=== PATIENT | female | born 1955 | race Caucasian/White ===

== ENCOUNTER → 2018-01-21 | Outpatient (CLI) | payer OTHER, MEDICARE ==
[~2018-01-21] MED LIST: CALC-864 PO; CEPH-13 PO; CEPH500T7 PO; CHOL10005 PO; ESOM40CA42 PO; LEVO50 PO; LEVO50TA86 PO; MULT-865 PO; NAS20R NS; VIT-7 PO
--- NOTE | 2018-01-22 11:27 | RADIOLOGY IMAGING REPORT ---
FACILITY: [facility] - [place] PATIENT NAME: KAELA CHRISTOPHER : [id number] MR: [id number] V: [id number] EXAM DATE: ORDERING PHYSICIAN: CODI RINCON TECHNOLOGIST: Jocelyn De Souza PROCEDURE:BILATERAL DIGITAL SCREENING MAMMOGRAM WITH CAD ASSISTED INTERPRETATION & 3D TOMOSYNTHESIS COMPARISON:Prior mammograms 12/11/16, 09/14/15, , 04/08/11. INDICATIONS:screening FINDINGS: A small amount of fibroglandular tissue is seen throughout the breasts. The parenchymal pattern has remained stable allowing for difference in mammographic technique & patient positioning. There is no evidence of malignant appearing mass, malignant appearing calcifications or other secondary sign of malignancy in either breast. DIAGNOSTIC CATEGORY 1--NEGATIVE. RECOMMENDATIONS: ROUTINE MAMMOGRAM AND CLINICAL EVALUATION. IMPRESSION: BIRADS 1: Negative. No significant abnormality is seen. Dictated by: Suzanne Lawson M.D. on 01/21/2018 at 16:10 Transcribed by: NIKITA on 01/22/2018 at 7:50 Approved by: Suzanne Lawson M.D. on 01/22/2018 at 11:26 [facility]
== END ==
LOC: MAMO 00:30
PROVIDERS: ATTEND Emergency Medicine
DX: Z12.31 Encounter for screening mammogram for malignant neoplasm of breast (principal)
CPT/HCPCS: 77063; 77067

== ENCOUNTER → 2018-02-22 | Outpatient (CLI) | payer OTHER, MEDICARE | LOC: LAB 08:01 | PROVIDERS: ATTEND Emergency Medicine | DX: Z12.11 Encounter for screening for malignant neoplasm of colon (principal) | CPT/HCPCS: 82274 ==

== ENCOUNTER → 2018-02-24 | Outpatient (CLI) | payer OTHER, MEDICARE ==
--- NOTE | 2018-02-24 14:32 | RADIOLOGY IMAGING REPORT ---
FACILITY: [facility] PATIENT NAME: Leanne Bowling : 1955 MR: [id number] V: [id number] EXAM DATE: ORDERING PHYSICIAN: CODI RINCON TECHNOLOGIST: Location: [facility] Patient: Leanne Bowling : 1955 Visit/Account:[id number] Date of Sevice: 02/24/2018 DEXA Scan 02/24/2018 11:25 AM HISTORY: Osteopenia. Asymptomatic postmenopausal estrogen deficiency. Comparison: DEXA scan from 09/11/2014. LUMBAR SPINE: The bone mineral density (BMD) measured from L1-L4 correlates with a Z-score of -0.7 and a T-score of -1.5 which is moderately osteopenic as defined by the World Health Organization. The corresponding risk of fracture in the lumbar spine is increased 3 times compared with a young adult reference popul ation. This value has decreased by 0.9 % since the prior study. More than 5% change is considered s ignificant. HIP: Bone mineral density (BMD) measured in the Left total hip region correlates with a Z-score -0.6 and a T-score of -1.2 which is mildly osteopenic as defined by the World Health Organization. The corresp onding risk of fracture in the hip is increased 2-3 times compared with a young adult reference popul ation. This value has decreased by 1.0 % since the prior study. More than 5% change is considered si gnificant. Bone mineral density (BMD) measured in the Femoral Neck region measures 0.799 g/cm2. T-score is -1. 7. IMPRESSION: 1. Lumbar spine: Moderate osteopenia. There has been No significant change in the bone mineral dens ity since the previous exam. 2. Left Total Hip: Mild osteopenia. There has been No significant change in the bone mineral densit y since the previous exam. 3. Femoral Neck: Bone Mineral Density is 0.799 g/cm2. Moderate osteopenia. The next DEXA scan of this patient should include the following sites: L1-L4 and the left hip. FRAX? WHO Fracture Risk Assessment Tool link: <http://www.shef.ac.uk/FRAX/tool.jsp?locationValue=9> PLEASE NOTE: 1) The World Health Organization defines low BMD as follows: T-score Normal > -1 Osteopenia < -1 and > -2.5 Osteoporosis < -2.5 without fractures Established osteoporosis < -2.5 with fractures 2) In general, you may wish to consider: Diagnosis Treatment Follow-up DEXA Normal BMD Prevention 2-3 years Osteopenia Prevention/therapy 1-2 years Osteoporosis Therapy Yearly 3) Fracture risk estimated from the T-score is more accurate for vertebral fractures (often spontane ous) than for hip fractures. Report Dictated By: Fabio Narayan MD at 02/24/2018 2:25 PM Report E-Signed By: Fabio Narayan MD at 02/24/2018 2:27 PM WSN:[id number]
== END ==
LOC: RAD 02:42
PROVIDERS: ATTEND Emergency Medicine
DX: M85.89 Other specified disorders of bone density and structure, multiple sites (principal); Z78.0 Asymptomatic menopausal state
CPT/HCPCS: 77080

== ENCOUNTER 2018-05-10 04:26 | Emergency (ER) | payer OTHER, MEDICARE ==
--- NOTE | 2018-05-10 04:34 | ER Report ---
History and Physical Time Seen By MD: 04:29 HPI/ROS CHIEF COMPLAINT: low back pain with radiation to left groin HISTORY OF PRESENT ILLNESS: Pt state that for last few days she has had left sided low back pain that she discribes as "constant ache". Pt has tried hot and cold. Pt has tired biofreeze and alieve. Pt still with pain. pain is not as bad if she is standing but is worse with leg raise or sitting. Pt points to left buttocks area and states it wraps around to her front thigh. Pt drove here. Pt is very anxious "how long is this going to take.. i want to be home by the time my mom with dementia wakes up". pt found to have elevated blood pressure on arrival but she feels that is white coat syndrome. no dysuria. no change in bm, but pt does have pain with bowelmovements at times. no hx of kidney stone. no hx of sciatica no fevers. PT needing to stand due to pain with sitting. REVIEW OF SYSTEMS: Constitutional: No fever, no chills. Eyes: No discharge. ENT: No sore throat. Cardiovascular: No chest pain, no palpitations. Respiratory: No cough, no shortness of breath. Gastrointestinal: No abdominal pain, no vomiting. Genitourinary: No hematuria. Musculoskeletal: + back pain. Skin: No rashes. Neurological: No headache. Allergies: Coded Allergies: Sulfa (Sulfonamide Antibiotics) (Verified Allergy, Intermediate, RED, RASH, HEAT, DISCOMFORT, 05/10/18) meperidine (Verified Allergy, Intermediate, ANXIOUS, HYPER, 05/10/18) levofloxacin (Verified Allergy, Mild, MADE ME SICK A DOG, 05/10/18) Home Meds Active Scripts Ondansetron (ZOFRAN ODT) 4 Mg Tab.rapdis, 4 MG PO Q6H PRN for NAUSEA/VOMITING, #15 TAB.AMY Prov:SOPHIA RAMOS V DO 05/10/18 Methocarbamol (ROBAXIN-750) 750 Mg Tablet, 750 MG PO Q4H PRN for MUSCLE SPASMS, #21 TAB Prov:SOPHIA RAMOS V DO 05/10/18 Hydrocodone Bit/Acetaminophen (HYDROCODON-ACETAMINOPHEN 5-325) 1 Each Tablet, 1 EACH PO Q6H PRN for PAIN, #21 TAB Prov:SOPHIA RAMOS V DO 05/10/18 Amoxicillin/Pot Clav 875-125 Mg Tab (AUGMENTIN 875-125 TABLET) 1 Each Tablet, 1 TAB PO Q12H, #20 TAB Prov:SOPHIA RAMOS V DO 05/10/18 Levothyroxine Sodium (LEVOTHYROXINE SODIUM) 50 Mcg Tablet, 1 TAB PO QDAY, #90 TAB 3 Refills Prov:CODI RINCON MD 01/28/18 Reported Medications Calcium Carb & Cit/Vitamin D3 (CITRACAL + D ER TABLET) 1 Each Tablet.er, 1 EACH PO DAILY 12/30/16 Past Medical/Surgical History pmhx: gerd, hiatal hernia, hypothyroid Pshx: appy, marielos, oopheretomy Reviewed Nurses Notes: Yes Old Medical Records Reviewed: Yes Hx Smoking: No Smoking Status: Never Smoker Constitutional Vital Sign - Last 24 Hours 05/10/18 05/10/18 05/10/18 04:32 04:55 05:50 Temp 98.2 Pulse 83 Resp 20 B/P (MAP) 202/117 162/103 (122) 166/92 (116) Pulse Ox 94 O2 Delivery Room Air Physical Exam General Appearance: The patient is alert, has no immediate need for airway protection and no signs of toxicity. Eyes: Pupils equal and round no pallor or injection, EOMI ENT: no pharyngeal erythema or exudates, Mucous membranes are moist Respiratory: There are no retractions, lungs are clear to auscultation. Cardiovascular: Regular rate and rhythm. pulses are equal and symmetrical Gastrointestinal: Abdomen is soft and non tender, no masses, bowel sounds normal, no guarding, no rigidity or rebound Neurological: Cranial nerves II-XII grossly intact, no sensory or motor loss Skin: Warm and dry, no rashes. Musculoskeletal: Neck is supple non tender, no vertebral tenderness, + point tenderness over left buttocks lateral to the S/I joint; + increased pain with left leg raise Extremities are nontender, non swollen and have full range of motion. DIFFERENTIAL DIAGNOSIS: After history and physical exam differential diagnosis was considered for sciatica, kidney stone, htn essential vs anxiety/pain Medical Decision Making Data Points Result Diagram: 05/10/1851205/10/18512 Laboratory Hematology Test 05/10/18 04:36 05/10/18 05:13 Urine Color Straw Urine Clarity Clear Urine pH 5.0 pH (4.8-9.5) Urine Specific [place] 1.011 Urine Protein Negative mg/dL (NEGATIVE) Urine Glucose (UA) Negative mg/dL (NEGATIVE) Urine Ketones Negative mg/dL (NEGATIVE) Urine Blood Small (NEGATIVE) Urine Nitrite Negative (NEGATIVE) Urine Bilirubin Negative (NEGATIVE) Urine Urobilinogen Negative mg/dL (0.2-1.9) Urine Leukocyte Esterase Negative (NEGATIVE) Urine RBC 3 /HPF (0-2/HPF) Urine WBC 2 /HPF (0-5/HPF) Urine Squamous Epithelial Cells Many /LPF (</=FEW) Urine Transitional Epithelial Cells Few /LPF (NONE-FEW) Urine Bacteria Negative /HPF (NONE-FEW) Urine Mucus None /HPF (NONE-FEW) Red Blood Count 5.40 M/uL (4.17-5.56) Mean Corpuscular Volume 84.3 fL (80.0-96.0) Mean Corpuscular Hemoglobin 28.5 pg (26.0-33.0) Mean Corpuscular Hemoglobin Concent 33.8 g/dL (32.0-36.0) Red Cell Distribution Width 13.6 % (11.5-14.5) Mean Platelet Volume 7.1 fL (7.2-11.1) Neutrophils (%) (Auto) 71.3 % (39.4-72.5) Lymphocytes (%) (Auto) 19.8 % (17.6-49.6) Monocytes (%) (Auto) 6.0 % (4.1-12.4) Eosinophils (%) (Auto) 2.0 % (0.4-6.7) Basophils (%) (Auto) 0.9 % (0.3-1.4) Nucleated RBC Relative Count (auto) 0.0 /100WBC Neutrophils # (Auto) 6.1 K/uL (2.0-7.4) Lymphocytes # (Auto) 1.7 K/uL (1.3-3.6) Monocytes # (Auto) 0.5 K/uL (0.3-1.0) Eosinophils # (Auto) 0.2 K/uL (0.0-0.5) Basophils # (Auto) 0.1 K/uL (0.0-0.1) Nucleated RBC Absolute Count (auto) 0.00 K/uL Sodium Level 138 mmol/L (137-145) Potassium Level 4.1 mmol/L (3.5-5.0) Chloride Level 105 mmol/L (98-107) Carbon Dioxide Level 21 mmol/L (22-31) Blood Urea Nitrogen 13 mg/dl (7-18) Creatinine 0.60 mg/dl (0.52-1.04) Glomerular Filtration Rate Calc > 60.0 Random Glucose 121 mg/dl (75-110) Calcium Level 9.3 mg/dl (8.4-10.2) Total Bilirubin 0.4 mg/dl (0.2-1.3) Aspartate Amino Transf (AST/SGOT) 25 U/L (0-35) Alanine Aminotransferase (ALT/SGPT) 25 U/L (0-56) Alkaline Phosphatase 96 U/L (0-126) Total Protein 8.4 g/dl (6.3-8.2) Albumin 4.5 g/dl (3.5-5.0) Chemistry Test 05/10/18 04:36 05/10/18 05:13 Urine Color Straw Urine Clarity Clear Urine pH 5.0 pH (4.8-9.5) Urine Specific [place] 1.011 Urine Protein Negative mg/dL (NEGATIVE) Urine Glucose (UA) Negative mg/dL (NEGATIVE) Urine Ketones Negative mg/dL (NEGATIVE) Urine Blood Small (NEGATIVE) Urine Nitrite Negative (NEGATIVE) Urine Bilirubin Negative (NEGATIVE) Urine Urobilinogen Negative mg/dL (0.2-1.9) Urine Leukocyte Esterase Negative (NEGATIVE) Urine RBC 3 /HPF (0-2/HPF) Urine WBC 2 /HPF (0-5/HPF) Urine Squamous Epithelial Cells Many /LPF (</=FEW) Urine Transitional Epithelial Cells Few /LPF (NONE-FEW) Urine Bacteria Negative /HPF (NONE-FEW) Urine Mucus None /HPF (NONE-FEW) White Blood Count 8.5 k/uL (4.5-11.0) Red Blood Count 5.40 M/uL (4.17-5.56) Hemoglobin 15.4 g/dL (12.0-16.0) Hematocrit 45.5 % (34.0-47.0) Mean Corpuscular Volume 84.3 fL (80.0-96.0) Mean Corpuscular Hemoglobin 28.5 pg (26.0-33.0) Mean Corpuscular Hemoglobin Concent 33.8 g/dL (32.0-36.0) Red Cell Distribution Width 13.6 % (11.5-14.5) Platelet Count 334 K/uL (150-450) Mean Platelet Volume 7.1 fL (7.2-11.1) Neutrophils (%) (Auto) 71.3 % (39.4-72.5) Lymphocytes (%) (Auto) 19.8 % (17.6-49.6) Monocytes (%) (Auto) 6.0 % (4.1-12.4) Eosinophils (%) (Auto) 2.0 % (0.4-6.7) Basophils (%) (Auto) 0.9 % (0.3-1.4) Nucleated RBC Relative Count (auto) 0.0 /100WBC Neutrophils # (Auto) 6.1 K/uL (2.0-7.4) Lymphocytes # (Auto) 1.7 K/uL (1.3-3.6) Monocytes # (Auto) 0.5 K/uL (0.3-1.0) Eosinophils # (Auto) 0.2 K/uL (0.0-0.5) Basophils # (Auto) 0.1 K/uL (0.0-0.1) Nucleated RBC Absolute Count (auto) 0.00 K/uL Glomerular Filtration Rate Calc > 60.0 Calcium Level 9.3 mg/dl (8.4-10.2) Total Bilirubin 0.4 mg/dl (0.2-1.3) Aspartate Amino Transf (AST/SGOT) 25 U/L (0-35) Alanine Aminotransferase (ALT/SGPT) 25 U/L (0-56) Alkaline Phosphatase 96 U/L (0-126) Total Protein 8.4 g/dl (6.3-8.2) Albumin 4.5 g/dl (3.5-5.0) Urinalysis Test 05/10/18 04:36 Urine Color Straw Urine Clarity Clear Urine pH 5.0 pH (4.8-9.5) Urine Specific [place] 1.011 Urine Protein Negative mg/dL (NEGATIVE) Urine Glucose (UA) Negative mg/dL (NEGATIVE) Urine Ketones Negative mg/dL (NEGATIVE) Urine Blood Small (NEGATIVE) Urine Nitrite Negative (NEGATIVE) Urine Bilirubin Negative (NEGATIVE) Urine Urobilinogen Negative mg/dL (0.2-1.9) Urine Leukocyte Esterase Negative (NEGATIVE) Urine RBC 3 /HPF (0-2/HPF) Urine WBC 2 /HPF (0-5/HPF) Urine Squamous Epithelial Cells Many /LPF (</=FEW) Urine Transitional Epithelial Cells Few /LPF (NONE-FEW) Urine Bacteria Negative /HPF (NONE-FEW) Urine Mucus None /HPF (NONE-FEW) EKG/Imaging Imaging lumbar xrays:Dextroscoliosis of the lumbar spine with asymmetric spondylosis that likely results in at least moderate narrowing of the L3-4 neural foramina on the left. ED Course/Re-evaluation ED Course check urine and xray. Will recheck blood pressure. PTs office visit in past had bp of 155/95 so pt does have htn by hx however today is elevated. 05/10/2018 5:05:00 am Pts blood pressure is not improved. Pt is now pacing the room. Pt refusing any narcotics due to need to taking care of her mom. Will obtain CT to rule out stone and any dilitation of her aorta. PT does have blood in urine 05/10/2018 5:41:28 am Pt on xray has Dextroscoliosis of the lumbar spine with asymmetric spondylosis that likely results in at least moderate narrowing of the L3-4 neural foramina on the left, this could be causing neuropathy pain. Still awaiting CT to rule out aortic or kidney issue. 05/10/2018 6:18:[address] shows some inflammation of the sigmoid with diverticula that could represent diverticulitis. Pt has not had diarrhea but is c/o of pain in groin and LLQ. Pt however continues to have an ache in left buttocks and with the narrowing of L3-l4 foramina I suspect pt has sciatica. Pt is unable to stay for MRI due to awaiting her mothers and pt states "i just want something for the back pain so I can sleep". Pt drove so I have been unable to give her any opoid relief. Pt will need to follow up with Dr. Sierra to schedule outpt MRI of lumbar area and possible follow up with Dr. Dickinson and also an out pt colonoscopy with Dr. Elana. PT was due for colonoscopy last year but was unable to schedule to due she had no one to take her. Pt allergic to levaquin so will give augmentin. pt not sure if she had any narcotic pain meds before. Will send home with lortab for pain, robaxin for spasms, zofran if nauseated and augmentin for inflammation of sigmoid. Pt appears uncomfortable so will give her a lortab to take once she gets home. Decision to Disposition Date: May 10, 2018 Decision to Disposition Time: 06:23 Depart Departure Latest Vital Signs Vital Signs Date Time Temp Pulse Resp B/P (MAP) Pulse Ox O2 Delivery O2 Flow Rate FiO2 05/10/18 05:50 166/92 (116) 05/10/18 04:32 98.2 83 20 94 Room Air Impression: Primary Impression: Diverticulitis of sigmoid colon Additional Impressions: Lumbar radiculopathy, acute Hypertension Condition: Condition Unchanged Disposition: HOME OR SELF-CARE Referrals: CODI RINCON MD (PCP) 5 Days MERLENE NEW MD call to schedule an appointment for colonscopy New Scripts Ondansetron (ZOFRAN ODT) 4 Mg Tab.rapdis 4 MG PO Q6H PRN for NAUSEA/VOMITING, #15 TAB.AMY Prov: LAURORA,SOPHIA V DO 05/10/18 Methocarbamol (ROBAXIN-750) 750 Mg Tablet 750 MG PO Q4H PRN for MUSCLE SPASMS, #21 TAB Prov: LAURORA,SOPHIA V DO 05/10/18 Hydrocodone Bit/Acetaminophen (HYDROCODON-ACETAMINOPHEN 5-325) 1 Each Tablet 1 EACH PO Q6H PRN for PAIN, #21 TAB Prov: LAURORA,SOPHIA V DO 05/10/18 Amoxicillin/Pot Clav 875-125 Mg Tab (AUGMENTIN 875-125 TABLET) 1 Each Tablet 1 TAB PO Q12H, #20 TAB Prov: LAURORA,SOPHIA V DO 05/10/18 Patient Instructions: Diverticulitis (ED), Lumbar Radiculopathy (ED) Additional Instructions: Follow up with your family doctor this week to schedule an MRI of your lumbar spine to further evaluate your pain. Your cat scan did show significant degenerative changes within that area. Your blood pressure was also elevated in the emergency room. When you see your family doctor you need to have it checked . If it continues to be elevated you may require medication. Your cat scan today also saw some inflammation of your colon in the left side of your abdomen. We are starting you on antibiotics. I recommend you follow up with Dr. New to schedule a colonoscopy when able. lortab one every 6 hours as needed for severe pain. Robaxin one every 4 hours as needed for muscle spasm zofran one every 6 hours as need for nausea Tylenol 650mg every 4 hours as needed for pain. You may continue to use alieve, heating pad to area. Problem Qualifiers Additional Impressions: Hypertension Hypertension type: unspecified Qualified Codes: I10 - Essential (primary) hypertension SOPHIA RAMOS DO May 10, 2018 04:34
[2018-05-10] MEDS ORDERED: IBUPROFEN 600 MG TAB PO ONE (04:35)
[2018-05-10] MEDS ORDERED: ORPHENADRINE 60MG/2ML INJ IVP ONE (05:00)
--- NOTE | 2018-05-10 05:16 | RADIOLOGY IMAGING REPORT ---
FACILITY: [facility] PATIENT NAME: Leanne Bowling : 1955 MR: [id number] V: [id number] EXAM DATE: [id number] ORDERING PHYSICIAN: SOPHIA RAMOS TECHNOLOGIST: Location: [facility] [place] Patient: Leanne Bowling : 1955 Visit/Account:[id number] Date of Sevice: 05/10/2018 INDICATION: Low back ache with radiation to left groin. EXAM DATE: 05/10/2018 4:34 AM COMPARISON: None. FINDINGS: 4 images lumbar spine. No acute alignment abnormality or fracture. Mild to moderate rightward curva ture of the lumbar spine. Asymmetric left-sided spondylosis greatest at the L3-4 level with associat ed osteophyte off the inferior endplate of L3 that likely results in at least moderate neural foramin al narrowing. Cholecystectomy clips. IMPRESSION: 1. No acute osseous abnormality of the lumbar spine. 3. Dextroscoliosis of the lumbar spine with asymmetric spondylosis that likely results in at least m oderate narrowing of the L3-4 neural foramina on the left. Report Dictated By: Marlo Dolan MD at 05/10/2018 5:10 AM Report E-Signed By: Marlo Dolan MD at 05/10/2018 5:13 AM WSN:[id number]
[2018-05-10 05:22] LABS: PLATELET COUNT, AUTOMATED 334 K/uL (150-450)
[2018-05-10 05:50] VITALS: BP 166/92
--- NOTE | 2018-05-10 06:01 | RADIOLOGY IMAGING REPORT ---
[place] [facility] [place] Leanne Bowlnig : 1955 MR: [id number] V: [id number] EXAM DATE: ORDERING PHYSICIAN: SOPHIA RAMOS TECHNOLOGIST: Location: [facility] Patient: Leanne Bowling : 1955 Visit/Account:[id number] Date of Sevice: 05/10/2018 CT of the abdomen and pelvis without contrast: Indication: Left flank pain radiating to the left groin. Technique: Helical CT was performed through the abdomen and pelvis without contrast. Multiplanar rec onstructions are reviewed. One of the following dose optimization techniques was utilized in the performance of this exam: Autom ated exposure control; adjustment of the mA and/or kV according to the patient's size; or use of an i terative reconstruction technique. Specific details can be referenced in the facility's radiology CT exam operational policy. Comparison: None. Lower lung quintana: No parenchymal or pleural abnormality is identified. There is a moderate/large hia fang hernia. Liver: Enlarged. The right lobe measures 21.0 cm. The parenchyma appears homogeneous. No focal liver lesions are identified. Gallbladder/biliary tree: There are surgical clips related to prior cholecystectomy. The bile ducts a re not dilated. Pancreas: Normal in size, shape, and density. Spleen: Normal in size, shape, and density. Adrenal glands: Within normal limits. Kidneys/urinary bladder: There is a 2.7 x 1.3 cm fat density lesion at the superior pole of the left kidney, compatible with angiomyolipoma. The left kidney is otherwise unremarkable. The right kidney appears unremarkable. There are no signs of urinary tract calculus or obstruction on either side. There are no signs of perinephric hemorrhage or fluid. The urinary bladder is unremarkable, as visualized. Intestinal structures: There are scattered diverticula throughout the colon, most pronounced in the s igmoid colon. There is thickening of the wall of the sigmoid colon, which may be a sign of acute dive rticulitis. There are no signs of fluid collection, free fluid, or free air around the sigmoid colon. There are no signs of intestinal obstruction. The appendix is not clearly visualized. Pelvis: The uterus and adnexal structures are unremarkable, as visualized. There are no signs of infl ammation or fluid in the pelvis. Aorta and vascular structures: There is mild atherosclerotic calcification in the aorta and iliac art eries. There is no evidence of aortic aneurysm or retroperitoneal hemorrhage. Ascites or fluid collections: None seen. Skeletal structures: There is moderate scoliosis and moderate degenerative changes in the lumbar spin e. No acute skeletal deformity is identified. Impression: There are scattered diverticula throughout the colon, most pronounced in the sigmoid colo n. Thickening of the wall sigmoid colon may be a sign of acute diverticulitis. There are no signs of fluid collection, free fluid, or free air. There are no signs of urinary tract calculus or obstructive uropathy. There is a fat density lesion at superior pole of the left kidney, compatible with angiomyolipoma. Report Dictated By: Tai Demarco MD at 05/10/2018 5:46 AM Report E-Signed By: Tai Demarco MD at 05/10/2018 5:58 AM WSN:[id number]
[2018-05-10] MEDS ORDERED: AMOX/CLAV 875 MG TAB PO ONE (06:20)
[2018-05-10] MEDS ORDERED: ACET/HYDROC 5/325MG TH ER ONLY 2 TAB/BOTTLE PO ONE (06:20)
[2018-05-10] MEDS ORDERED: AMOX-559 PO (06:26)
[2018-05-10] MEDS ORDERED: LOR5/325 PO (06:26)
[2018-05-10] MEDS ORDERED: METH-543 PO (06:33)
[2018-05-10] MEDS ORDERED: ONDA4TAB PO (06:35)
[2018-05-10] MEDS ORDERED: ONDANSETRON 4 MG/2 ML VIAL IVP ONE (06:40)
== END 2018-05-10 06:46 | disposition home or self-care (01) ==
LOC: ER 04:31
DX: K57.32 Diverticulitis of large intestine without perforation or abscess without bleeding (principal); M54.16 Radiculopathy, lumbar region; I10 Essential (primary) hypertension
CPT/HCPCS: 72120; 74176; 81001; 85025; 96374; 99284; J2360; 82040; 82247; 82310; 82374; 82435; 82565; 82947; 84075; 84132; 84155; 84295; 84450; 84460; 84520

== ENCOUNTER → 2018-08-05 | Outpatient (CLI) | payer OTHER, MEDICARE ==
[~2018-08-05] MED LIST changes: +AMLO2.5T76 PO; +AMOX-559 PO; +ASPI81TA94 PO; +ESOM20CA31 PO; +LOR5/325 PO; +LOSA50TA80 PO; +METH-543 PO; +ONDA4TAB PO; +TRAZ50TA34 PO
--- NOTE | 2018-08-05 17:05 | EKG ---
FACILITY: [facility] [place] PATIENT NAME: KAELA CHRISTOPHER : [id number] MR: [id number] V: [id number] EXAM DATE: ORDERING PHYSICIAN: SUSAN ARSHAD TECHNOLOGIST: DANA Sawyer Reason : CHEST PAIN,TIGHTNESS Blood Pressure : / mmHG Vent. Rate : 089 BPM Atrial Rate : 089 BPM P-R Int : 144 ms QRS Dur : 076 ms QT Int : 382 ms P-R-T Axes : 056 022 047 degrees QTc Int : 464 ms Normal sinus rhythm Nonspecific ST abnormality Abnormal ECG When compared with ECG of 14-NOV-2015 11:29, No significant change was found Confirmed by SUSAN ARSHAD ([id number]) on 08/09/2018 4:48:49 PM Referred By: GEORGINA Confirmed By:SUSAN ARSHAD
== END ==
LOC: RESP 13:10
PROVIDERS: ATTEND Internal Medicine
DX: Z02.9 Encounter for administrative examinations, unspecified (principal)

== ENCOUNTER → 2018-08-06 | Outpatient (CLI) | payer OTHER, MEDICARE ==
[2018-08-06 08:00] LABS: PLATELET COUNT, AUTOMATED 322 K/uL (150-450)
[2018-08-06 08:26] LABS: LDL CHOLESTEROL 153 mg/dl
== END ==
LOC: LAB 07:41
PROVIDERS: ATTEND Internal Medicine
DX: E78.5 Hyperlipidemia, unspecified (principal); E03.9 Hypothyroidism, unspecified; K21.9 Gastro-esophageal reflux disease without esophagitis; I10 Essential (primary) hypertension
CPT/HCPCS: 36415; 81001; 82040; 82247; 82310; 82374; 82435; 82465; 82565; 82728; 82947; 83036; 83540; 83550; 83718; 84075; 84132; 84155; 84295; 84439; 84443; 84450; 84460; 84478; 84520; 85025

== ENCOUNTER → 2018-09-14 | Outpatient (CLI) | payer OTHER, MEDICARE ==
[~2018-09-14] MED LIST changes: +AMLO-125 PO; -AMLO2.5T76 PO; +AMLO2.5T78 PO; +ROSU10TA5 PO
== END ==
LOC: LAB 07:48
PROVIDERS: ATTEND Emergency Medicine
DX: E78.5 Hyperlipidemia, unspecified (principal)
CPT/HCPCS: 36415; 82465; 83718; 84478

== ENCOUNTER 2018-09-29 01:49 | Day surgery (SDC) | payer OTHER, MEDICARE ==
[~2018-09-29] VITALS: Ht 172.7 cm; Wt 83.9 kg
[2018-09-29] MEDS ORDERED: LIDOCAINE MPF 1% 5 ML VIAL ONE (07:03)
[2018-09-29] MEDS ORDERED: PROPOFOL EMUL(*) 10MG/ML 20 ML 60 ML ONE (07:03)
[2018-09-29] MEDS ORDERED: NORMOSOL R SOLN(*) 1000 ML BAG 1,000 ML IV PRN (07:50)
[2018-09-29] MEDS ORDERED: LIDOCAINE/SOD BICARB 8.4% SYR ID ONE (07:50)
[2018-09-29 08:12] VITALS: BP 146/80
[2018-09-29 09:30] VITALS: BP 103/67
--- NOTE | 2018-09-29 09:42 | Short(Outpt) Discharge Summary ---
Discharge Summary Reason for Hosp/Final Diag: (1) Diverticulitis of sigmoid colon Status: Resolved Hospital Course & Plan: Colonoscopy with polypectomy x5 completed without navin avila. Departure Discharge to: Home, Self Care Discharge Instructions Home Meds Active Scripts Rosuvastatin Calcium (Rosuvastatin Calcium) 10 Mg Tablet, 1 TAB PO DAILY, #90 TAB 3 Refills Prov:CODI RINCON MD 09/15/18 Amlodipine Besylate (AMLODIPINE BESYLATE) 5 Mg Tablet, 1 TAB PO BID, #180 TAB 3 Refills Prov:CODI RINCON MD 09/15/18 Trazodone Hcl (TRAZODONE HCL) 50 Mg Tablet, 0.5-1 TAB PO QHS, #90 TAB 3 Refills Prov:CODI RINCON MD 08/30/18 Levothyroxine Sodium (LEVOTHYROXINE SODIUM) 50 Mcg Tablet, 1 TAB PO QDAY, #90 TAB 3 Refills Prov:CODI RINCON MD 01/28/18 Reported Medications Cephalexin 500 Mg Tab (KEFLEX 500 MG TAB) 500 Mg Tablet, 2000 MG PO DIRECTED, #28 TAB 1 HOUR BEFORE DENTAL PROCEDURES 09/16/18 Esomeprazole Magnesium (NEXIUM) 20 Mg Capsule.dr, 1-2 CAP PO QDAY, CAP 08/05/18 Aspirin (ASPIRIN) 81 Mg Tab.chew, 81 MG PO QDAY, TAB.CHEW 07/05/18 Calcium Carb & Cit/Vitamin D3 (CITRACAL + D ER TABLET) 1 Each Tablet.er, 1 EACH PO DAILY 12/30/16 Diet: Regular Activity: As Tolerated Special Instructions: Your colonoscopy was completed without problems and your prep was excellent (Good Job!!). I removed 4 small polyps from your colon and rectum and they were sent to pathology. I didn't find any other problems although I did see the diverticuli in your sigmoid colon but there was no longer any inflammation. My office will call you in the next week or two to let you know what the polyps are and when your next colonoscopy should be (either 5 or 10 years) depending on what the polyps are. MERLENE NEW MD Sep 29, 2018 09:42
[2018-09-29 09:45] VITALS: BP 109/67
[2018-09-29 10:00] VITALS: BP 125/90
[2018-09-29 10:10] VITALS: BP 137/86
[2018-09-29 10:12] VITALS: BP 137/82
--- NOTE | 2018-09-29 11:17 | NUR ---
0930 PT ARRIVED TO AR VIA CART, SAFETY MAINTAINED, VSS, LEFT LAT POSITION. SBAR FROM Alejandra GARRETT RN AND DR. SMALLS. 0945 PT IN SF POSITION, DESCRIBES FEELING WEEPY, BUT NO DISCERNIBLE REASON TO FEEL SAD. VSS, DECLINES FOOD/DRINK. DR. NEW AT BEDSIDE, DOWN TO 3L MASK 1000 DOWN TO 1L MASK SATTING WELL 1010 ORTHOSTATICS STABLE, STEADY ON FEET ALLOWED TO DRESS 1015 CALLED FRIEND RONEN FOR RIDE 1020 PT UP TO BATHROOM TO VOID 1025 D/C INSTRUCTIONS COVERED WITH PT, IV OUT, PRESSURE DRESSING APPLIED 1030 WALKED OUT WITH PT TO PARKING GARAGE, COVERED D/C INSTRUCTIONS WITH RONEN, ALL QUESTIONS ANSWERED. WALKED WITH PT TO CAR, SELF TRANSFERRED WITHOUT INCIDENT. ALL BELONGINGS WITH PT.
== END 2018-09-29 10:35 | disposition home or self-care (01) ==
LOC: OR 01:49
PROVIDERS: ATTEND Surgery
DX: D12.5 Benign neoplasm of sigmoid colon (principal); K63.5 Polyp of colon; K62.1 Rectal polyp; K57.30 Diverticulosis of large intestine without perforation or abscess without bleeding
CPT/HCPCS: 00811; 45380; 45385; 88305; J2001; J2704

== ENCOUNTER → 2019-02-24 | Outpatient (CLI) | payer OTHER, MEDICARE ==
[~2019-02-24] MED LIST changes: -TRAZ50TA34 PO; +TRAZ50TA52 PO
--- NOTE | 2019-02-24 16:03 | RADIOLOGY IMAGING REPORT ---
FACILITY: [facility] PATIENT NAME: KAELA CHRISTOPHER : [id number] MR: [id number]: [id number] EXAM DATE: [id number] ORDERING PHYSICIAN: CODI RINCON TECHNOLOGIST: Maria Eugenia Meza PROCEDURE: BILATERAL DIGITAL SCREENING MAMMOGRAM WITH CAD ASSISTED INTERPRETATION & 3D TOMOSYNTHESIS. REASON FOR STUDY: Screening. COMPARISON: 01/21/18 back to 09/11/14. VIEWS OBTAINED: 2D & 3D full field CC & MLO projections. BREAST DENSITY: The breast parenchyma is predominantly fatty replaced. MAMMOGRAM FINDINGS: There are no dominant masses or recent microcalcifications in either breast. IMPRESSION: BIRADS 1: Negative. DIAGNOSTIC CATEGORY 1--NEGATIVE. RECOMMENDATIONS: ROUTINE MAMMOGRAM AND CLINICAL EVALUATION. Dictated by: Stiven Houston M.D. on 02/24/2019 at 11:51 Transcribed by: [email or web address] on 02/24/2019 at 14:13 Approved by: Stiven Houston M.D. on 02/24/2019 at 15:58 [facility]
== END ==
LOC: MAMO 00:34
PROVIDERS: ATTEND Emergency Medicine
DX: Z12.31 Encounter for screening mammogram for malignant neoplasm of breast (principal)
CPT/HCPCS: 77063; 77067